=== PATIENT | female | born 1975 | race Caucasian/White ===

== ENCOUNTER 2022-07-06 14:11 | Emergency (ER) | payer MEDICAID ==
[~2022-07-06] VITALS: Ht 167.6 cm; Wt 134.0 kg
[2022-07-06 14:23] VITALS: BP 136/98
[2022-07-06] MEDS ORDERED: LASIX 40 MG TAB40 MG PO (14:34)
[2022-07-06] MEDS ORDERED: OMEPRAZOLE DR40 MG PO (14:34)
[2022-07-06] MEDS ORDERED: COREG25 MG PO (14:35)
[2022-07-06] MEDS ORDERED: HYDROCO/APAP1 T10 PO (15:26)
[2022-07-06 15:30] VITALS: BP 136/98
== END 2022-07-06 15:38 | disposition home or self-care (01) ==
LOC: ED 14:11
DX: M79.602 Pain in left arm (principal); R22.32 Localized swelling, mass and lump, left upper limb; I10 Essential (primary) hypertension; E11.9 Type 2 diabetes mellitus without complications; M06.9 Rheumatoid arthritis, unspecified